=== PATIENT | female | born 2000 | race Two or more races ===

== ENCOUNTER 2024-05-18 00:44 | Emergency (ER) | payer MEDICAID, OTHER ==
[~2024-05-18] VITALS: Ht 175.3 cm; Wt 59.5 kg
[2024-05-18 01:30] VITALS: BP 119/93; TEMP 98.4
[2024-05-18] MEDS ORDERED: ALBUTEROL SULF 2.5 MG/0.5ML(0.5%) NEB SOLN NEB ONE (01:30)
[2024-05-18 01:38] VITALS: PULSE 125
--- NOTE | 2024-05-18 01:39 | ED.PDOC ---
SOB-HPI HPI Comments PRESENTS TO ED FOR NONPRODUCTIVE, IRRITATING AND LINGERING COUGH X 1 WEEK. PATIENT REPORTS HISTORY OF ASTHMA BUT HAS NOT HAD ANY INHALER FOR A WEEK. RR 22, OXYGEN SATURATION OF 92% ROOM AIR. WHEEZING IN ALL LUNG [place]. NONLABORED BREATHING. DENIES DIFFICULTY BREATHING OR CHEST PAIN NOTES NO FEVERS OR CHILLS. Chief Complaint: Cough Time Seen by MD: 00:57 Reviewed notes: Nurses Notes, Medications, Allergies Information Source: Patient Mode of Arrival: Ambulatory Past Medical History PAST MEDICAL HISTORY: Arthritis Family History Family History: Reviewed,noncontributory to illness Social History Smoker: Non-Smoker Alcohol: Denies ETOH Use Drugs: Denies Drug Use Constitutional: denies: chills, diaphoresis, fatigue, fever, malaise, sweats, weakness, others EENTM: denies: blurred vision, double vision, ear bleeding, ear discharge, ear drainage, ear pain, ear ringing, eye pain, eye redness, hearing loss, mouth pain, mouth swelling, nasal discharge, nose bleeding, nose congestion, nose pain, photophobia, tearing, throat pain, throat swelling, voice changes, others Respiratory: reports: cough, SOB at rest, wheezing; denies: hemoptysis, orthopnea, shortness of breath, SOB with excertion, stridor, others Cardiovascular: denies: chest pain, dizzy spells, diaphoresis, Dyspnea on exertion, edema, irregular heart beat, left arm pain, lightheadedness, palpitations, PND, syncope, others Gastrointestinal: denies: abdomen distended, abdominal pain, blood streaked bowels, constipated, diarrhea, dysphagia, difficulty swallowing, hematemesis, melena, nausea, poor appetite, poor fluid intake, rectal bleeding, rectal pain, vomiting, others Genitourinary: denies: abnormal vagina bleeding, burning, dyspareunia, dysuria, flank pain, frequency, hematuria, incontinence, pain, , vagina d ischarge, urgency, others Neurological: denies: dizziness, fainting, headache, left sided numbness, left sided weakness, numbness, paresthesia, pre-existing deficit, right sided numbness, right sided weakness, seizure, speech problems, tingling, tremors, weakness, others Musculoskeletal: denies: back pain, gout, joint pain, joint swelling, muscle pain, muscle stiffness, neck pain, others Integumetry: denies: bruises, change in color, change in hair/nails, dryness, laceration, lesions, lumps, rash, wounds, others Hematologic/Lymphatic: denies: anemia, blood clots, easy bleeding, easy bruising, swollen glands, others Endocrine: denies: excessive hunger, excessive sweating, excessive thirst, excessive urination, flushing, intolerance to cold, intolerance to heat, unexplained weight gain, unexplained weight loss, others Psychiatric: denies: anxiety, bipolar disorder, depression, hopeless, panic disorder, schizophrenia, sleepless, suicidal, others Physical Exam General Appearance: No Apparent Distress, Normal HEENT: Normal ENT Inspection, Pharynx Normal, TMs Normal Neck: Full Range of Motion, Non-Tender Respiratory: Chest Non-Tender, Expiration, Inspiration, No Accessory Muscle Use, No Respiratory Distress, Wheezing Cardiovascular: No Murmur, Normal Peripheral Pulses, Regular Rate/Rhythm Breast Exam: Deferred Gastrointestinal: Non Tender, Soft Genitalia: Deferred Pelvic: Deferred Rectal: Deferred Extremities: Normal capillary refill, Normal inspection, Normal range of motion, Non-tender, No pedal edema Musculoskeletal : Apperance: Normal Neurologic: Alert, senior benefits specialist II-XII nml as Tested, No Motor Deficits, Normal Affect, Normal Mood, No Sensory Deficits Cerebellar Function: Normal Reflexes: Normal Skin: Dry, Normal Color, Warm Lymphatic: No Adenopathy Was a procedure done? Was a procedure done?: No Differential Dx Differential Diagnosis: Asthma, Bronchitis, Pneumonia X-Ray, Labs, Meds, VS Vital Signs Date Time Temp Pulse Resp B/P (MAP) Pulse Ox O2 Delivery O2 Flow Rate FiO2 05/18/24 02:01 20 97 Room Air* 0 21 05/18/24 01:45 20 97 Room Air* 0 21 05/18/24 01:38 125 20 96 Room Air 05/18/24 01:30 98.4 125 20 119/93 (102) 96 98.4 05/18/24 00:57 22 92 Room Air* 0 21 05/18/24 00:57 98.2 115 22 139/88 (105) 92 Current Medications Medications (Trade) Dose Ordered Sig/Ching Route Start Time Stop Time Status Last Admin Methylprednisolone Sodium Succinate (Solu Medrol) 125 mg ONCE ONCE IM 05/18/24 01:30 05/18/24 01:31 DC 05/18/24 01:47 Albuterol (Ventolin Medneb) 5 mg ONCE ONCE NEB 05/18/24 01:30 05/18/24 01:31 DC 05/18/24 01:44 Ipratropium [place] (Atrovent Medneb) 0.5 mg ONCE ONCE NEB 05/18/24 01:30 05/18/24 01:31 DC 05/18/24 02:03 X-Ray, Labs, Meds, VS Comment Neb treatment with Atrovent and albuterol x1. Lung sounds clear equal bilateral patient reports improvement requesting discharge at this time. We will refill patient's albuterol inhaler. Patient on trial of Singulair. Patient to follow up with her PCP if no improvement as discussed. ER return precautions given patient agrees with discharge plan of care. Time of 1ST Reevaluation: 02:10 Reevaluation 1ST: Improved Patient Education/Counseling: Diagnosis, Treatment, Prognosis, Need For Follow Up Family Education/Counseling: No Family Present Departure 1 Departure Time of Disposition: 02:10 Impression: Primary Impression: Asthma attack Qualified Codes: J45.901 - Unspecified asthma with (acute) exacerbation Disposition: 01 HOME / SELF CARE / HOMELESS Condition: Stable e-Prescriptions Montelukast Sodium (Singulair) 10 Mg Tab 10 MG PO HS for 14 Days, #14 TAB Prov: JELANI PILLAIP 05/18/24 Albuterol Sulfate (VENTOLIN MDI) 90 Mcg Ih 180 MCG IN Q6HP PRN for 30 Days, #1 INHALER Prov: JELANI PILLAIP 05/18/24 Discharged With: Self Critical Care Note Critical Care Time?: No Stability Stability form required: No Heart Score Heart Score: Heart Score Response (Comments) Value History N/A 0 EKG N/A 0 Age <45 0 Risk Factors N/A 0 Troponin N/A 0 Total 0 JELANI PILLAI May 18, 2024 01:39
[2024-05-18] MEDS: ALBUTEROL SULF 2.5 MG/0.5ML(0.5%) NEB SOLN NEB ONE (01:44)
[2024-05-18] MEDS: IPRATROPIUM BROM 0.5 MG/2.5ML INH SOL NEB ONE (01:47)
[2024-05-18] MEDS: methylPREDNISolone SOD SUCC 125 MG/2 ML VL IM ONE (01:47)
[2024-05-18 02:01] VITALS: RESP 20; O2SAT 97
[2024-05-18] MEDS ORDERED: ALBUAER3 IN (02:13)
[2024-05-18] MEDS ORDERED: MONT10TA23 PO (02:13)
== END 2024-05-18 02:38 | disposition home or self-care (01) ==
LOC: ER 00:44
DX: J45.909 Unspecified asthma, uncomplicated (principal); M19.90 Unspecified osteoarthritis, unspecified site
CPT/HCPCS: 94640; 96372; 99283; J2919